=== PATIENT | female | born 1935 | race Caucasian/White ===

== ENCOUNTER 2016-10-18 12:33 | Emergency (ER) | payer MEDICARE, OTHER ==
[2016-10-18] MEDS ORDERED: Adenosine 6 MG/2 ML SDV ONE (13:01)
[2016-10-18] MEDS ORDERED: Diltiazem 25 MG/5 ML SDV IVPUSH ONE (13:10)
[2016-10-18] MEDS ORDERED: Adenosine 6 MG/2 ML SDV IVPUSH ONE (13:10)
--- NOTE | 2016-10-18 13:14 | EDM.PDOC ---
ED HPI GENERAL MEDICAL PROBLEM - General Chief Complaint: Chest Pain Stated Complaint: RAPID HEART RATE Time Seen by Provider: 10/18/16 13:14 Source of Information: Reports: Patient, Family History Limitations: Reports: No Limitations - History of Present Illness INITIAL COMMENTS - FREE TEXT/NARRATIVE: pt arrived with a heart rate of 140. She did not have chest pain but did feel like her heart was racing. Onset: Today Duration: Hour(s):, Other ( She started feeling like her heart was rapid this am. ) Location: Reports: Chest Associated Symptoms: Reports: Other ( rapid heart bear. ) - Related Data Allergies Allergy/AdvReac Type Severity Reaction Status Date / Time codeine Allergy unknown Verified 10/18/16 13:46 Penicillins Allergy unknown Verified 10/18/16 13:46 Home Meds: Home Meds Cetirizine [ZyrTEC] 10 mg PO DAILY 12/05/15 [History] Cranberry Extract [Cranberry] 1 cap PO DAILY 12/05/15 [History] Diazepam [Valium] 2 mg PO QID PRN 12/05/15 [History] Gabapentin [Neurontin] 300 mg PO TID 12/05/15 [History] Hyoscyamine Sulfate [Levbid] 0.375 mg PO DAILY 12/05/15 [History] Multivitamin [Multi-Vitamin Daily] 1 tab PO DAILY 12/05/15 [History] Omeprazole 40 mg PO DAILY 12/05/15 [History] Simvastatin [Zocor] 20 mg PO DAILY 12/05/15 [History] cycloSPORINE [Restasis] 1 drop EYEBOTH BID 10/18/16 [History] Past Medical History Musculoskeletal History: Reports: Back Pain, Chronic Social & Family History - Tobacco Use Smoking Status *Q: Never Smoker ED ROS GENERAL - Review of Systems Review Of Systems: See Below Constitutional: Reports: No Symptoms HEENT: Reports: No Symptoms Respiratory: Reports: No Symptoms Cardiovascular: Reports: Palpitations Endocrine: Reports: No Symptoms GI/Abdominal: Reports: No Symptoms : Reports: No Symptoms Musculoskeletal: Reports: No Symptoms Skin: Reports: No Symptoms ED EXAM, GENERAL - Physical Exam Exam: See Below Free Text/Narrative:: pt arrived with a rapid heart rate and she felt uncomfortable with this. Exam Limited By: No Limitations General Appearance: Alert, Anxious Ears: Normal TMs Nose: Normal Inspection Throat/Mouth: Normal Inspection Head: Atraumatic Neck: Normal Inspection Respiratory/Chest: No Respiratory Distress Cardiovascular: Regular Rate, Rhythm, Tachycardia GI/Abdominal: Soft, Non-Tender (Female) Exam: Deferred Rectal (Female) Exam: Deferred Back Exam: Normal Inspection Extremities: Normal Inspection Neurological: Alert, Oriented, Normal Cognition Psychiatric: Normal Affect Course - Vital Signs Last Recorded V/S: Last Vital Signs Temp 36.0 C 10/18/16 13:18 Pulse 137 H 10/18/16 13:18 Resp 18 10/18/16 13:18 BP 162/98 H 10/18/16 13:18 Pulse Ox 95 10/18/16 13:18 - Orders/Labs/Meds Orders: Active Orders 24 hr Category Date Time Status Echo Comp wo Cont [US] Stat Exams 10/18/16 14:22 Taken Diltiazem [Cardizem] 100 mg Med 10/18/16 14:00 Active Sodium Chloride 0.9% [Normal Saline] 100 ml IV TITRATE Medication Orders Diltiazem HCl 100 mg/ Sodium (Chloride) 100 mls @ 5 mls/hr IV TITRATE RIDDHI; 5 MG /HR PRN Reason: Protocol Labs: Laboratory Tests 10/18/16 10/18/16 10/18/16 Range/Units 13:12 13:12 13:12 WBC 9.6 (4.5-11.0) K/uL RBC 4.38 (3.30-5.50) M/uL Hgb 15.1 H (12.0-15.0) g/dL Hct 41.7 (36.0-48.0) % MCV 95 (80-98) fL MCH 35 H (27-31) pg MCHC 36 (32-36) % Plt Count 355 (150-400) K/uL Neut % (Auto) 74 H (36-66) % Lymph % (Auto) 18 L (24-44) % [place] % (Auto) 7 H (2-6) % Eos % (Auto) 1 L (2-4) % Baso % (Auto) 0 (0-1) % Sodium 135 L (140-148) mmol/L Potassium 4.4 (3.6-5.2) mmol/L Chloride 101 (100-108) mmol/L Carbon Dioxide 28 (21-32) mmol/L Anion Gap 10.4 (5.0-14.0) mmol/L BUN 15 (7-18) mg/dL Creatinine 0.8 (0.6-1.0) mg/dL Est Cr Clr Drug Dosing 46.40 mL/min Estimated GFR (MDRD) > 60 (>60) Glucose 102 (74-106) mg/dL Calcium 8.8 (8.5-10.1) mg/dL Total Bilirubin 1.0 (0.2-1.0) mg/dL AST 24 (15-37) U/L ALT 25 (12-78) U/L Alkaline Phosphatase 77 (46-116) U/L Creatine Kinase 70 (26-192) U/L Troponin I 0.020 (0.000-0.056) ng/mL Vga-T-Fuesohgeefh Pept 707 H (5-450) pg/mL Total Protein 7.8 (6.4-8.2) g/dL Albumin 3.4 (3.4-5.0) g/dL Globulin 4.4 H (2.3-3.5) g/dL Albumin/Globulin Ratio 0.8 L (1.2-2.2) Urine Color Urine Appearance Urine pH (4.5-8.0) Ur Specific [place] (1.008-1.030) Urine Protein (NEGATIVE) mg/dL Urine Glucose (UA) (NEGATIVE) mg/dL Urine Ketones (NEGATIVE) mg/dL Urine Occult Blood (NEGATIVE) Urine Nitrite (NEGATIVE) Urine Bilirubin (NEGATIVE) Urine Urobilinogen (NORMAL) mg/dL Ur Leukocyte Esterase (NEGATIVE) Urine RBC (0-5) Urine WBC (0-5) Ur Epithelial Cells Amorphous Sediment Urine Bacteria Urine Mucus 10/18/16 Range/Units 13:18 WBC (4.5-11.0) K/uL RBC (3.30-5.50) M/uL Hgb (12.0-15.0) g/dL Hct (36.0-48.0) % MCV (80-98) fL MCH (27-31) pg MCHC (32-36) % Plt Count (150-400) K/uL Neut % (Auto) (36-66) % Lymph % (Auto) (24-44) % [place] % (Auto) (2-6) % Eos % (Auto) (2-4) % Baso % (Auto) (0-1) % Sodium (140-148) mmol/L Potassium (3.6-5.2) mmol/L Chloride (100-108) mmol/L Carbon Dioxide (21-32) mmol/L Anion Gap (5.0-14.0) mmol/L BUN (7-18) mg/dL Creatinine (0.6-1.0) mg/dL Est Cr Clr Drug Dosing mL/min Estimated GFR (MDRD) (>60) Glucose (74-106) mg/dL Calcium (8.5-10.1) mg/dL Total Bilirubin (0.2-1.0) mg/dL AST (15-37) U/L ALT (12-78) U/L Alkaline Phosphatase (46-116) U/L Creatine Kinase (26-192) U/L Troponin I (0.000-0.056) ng/mL Rzy-A-Mguusquawoi Pept (5-450) pg/mL Total Protein (6.4-8.2) g/dL Albumin (3.4-5.0) g/dL Globulin (2.3-3.5) g/dL Albumin/Globulin Ratio (1.2-2.2) Urine Color Yellow Urine Appearance Clear Urine pH 8.0 (4.5-8.0) Ur Specific [place] 1.015 (1.008-1.030) Urine Protein Negative (NEGATIVE) mg/dL Urine Glucose (UA) Normal (NEGATIVE) mg/dL Urine Ketones Negative (NEGATIVE) mg/dL Urine Occult Blood Moderate (NEGATIVE) Urine Nitrite Negative (NEGATIVE) Urine Bilirubin Negative (NEGATIVE) Urine Urobilinogen Normal (NORMAL) mg/dL Ur Leukocyte Esterase Negative (NEGATIVE) Urine RBC 0-5 (0-5) Urine WBC 0-5 (0-5) Ur Epithelial Cells Rare Amorphous Sediment Few Urine Bacteria Rare Urine Mucus Few Meds: Medications Generic Name Dose Route Start Last Admin Trade Name Freq PRN Reason Stop Dose Admin Diltiazem HCl 100 mg/ Sodium 100 mls @ 5 mls/hr 10/18/16 14:00 Chloride IV TITRATE RIDDHI Protocol 5 MG/HR Discontinued Medications Generic Name Dose Route Start Last Admin Trade Name Freq PRN Reason Stop Dose Admin Adenosine Confirm 10/18/16 13:01 10/18/16 13:50 Adenocard Administered 10/18/16 13:02 Not Given Dose 6 mg .ROUTE .STK-MED ONE Adenosine 6 mg 10/18/16 13:10 10/18/16 13:10 Adenocard IVPUSH 10/18/16 13:11 6 mg NOW ONE Administration Diltiazem HCl 5 mg 10/18/16 13:10 Diltiazem IVPUSH 10/18/16 13:11 ONETIME ONE Diltiazem HCl 100 mg/ Sodium 100 mls @ 5 mls/hr 10/18/16 13:15 Chloride IV TITRATE RIDDHI Protocol 5 MG/HR - Re-Assessments/Exams Free Text/Narrative Re-Assessment/Exam: 10/18/16 16:06 Ekg showed a probable atrial flutter, with a rate of 140. She was given adenogard which showed a definite atrial flutter. She was then given cardizem 5mg iv push and she converted before the drip could be started. She remains stable at this point. Departure - Departure Time of Disposition: 16:08 Disposition: Home, Self-Care 01 Condition: Fair Clinical Impression: Atrial flutter with rapid ventricular response Referrals: PCP,None [Primary Care Provider] - Forms: ED Department Discharge Care Plan Goals: lopressor 12.5 mg daily, appt with Dr Bustillos. in 1 week. - My Orders Last 24 Hours: My Active Orders 10/18/16 14:00 Diltiazem [Cardizem] 100 mg Sodium Chloride 0.9% [Normal Saline] 100 ml IV TITRATE 10/18/16 14:22 Echo Comp wo Cont [US] Stat - Assessment/Plan Last 24 Hours: My Active Orders 10/18/16 14:00 Diltiazem [Cardizem] 100 mg Sodium Chloride 0.9% [Normal Saline] 100 ml IV TITRATE 10/18/16 14:22 Echo Comp wo Cont [US] Stat
[2016-10-18] MEDS ORDERED: Diltiazem 100 MG in Sodium Chloride 0.9% 100 ML IV SCH ×2 (13:15→14:00)
--- NOTE | 2016-10-18 13:53 | CR ---
Heart size within normal limits. Calcified granuloma right lung base. No focal consolidation.
[2016-10-18 16:34] VITALS: BP 115/53
== END 2016-10-18 16:48 | disposition home or self-care (01) ==
LOC: JP.ED 12:33
DX: I48.92 Unspecified atrial flutter (principal); R06.02 Shortness of breath; Z79.899 Other long term (current) drug therapy; Z88.5 Allergy status to narcotic agent; Z88.0 Allergy status to penicillin
CPT/HCPCS: 36415; 71010; 80053; 81001; 82550; 83880; 84484; 85025; 93010; 93306; 96374; 99284; 99285; J0153

== ENCOUNTER 2016-10-28 19:16 | Emergency (ER) | payer MEDICARE, OTHER ==
[2016-10-28] MEDS ORDERED: Sodium Chloride 0.9% 10 ML Syringe FLUSH PRN (20:12)
[2016-10-28] MEDS ORDERED: Adenosine 6 MG/2 ML SDV IVPUSH ONE (20:22)
[2016-10-28] MEDS ORDERED: Diltiazem 25 MG/5 ML SDV IVPUSH ONE ×2 (20:27→23:05)
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
[2016-10-28] MEDS ORDERED: Diltiazem 100 MG in Sodium Chloride 0.9% 100 ML IV SCH (21:15)
[2016-10-29] MEDS ORDERED: Metoprolol Tartrate 25 MG Tab PO ONE (00:01)
[2016-10-29 02:13] VITALS: BP 130/52
--- NOTE | 2016-10-29 10:08 | CR ---
Chest 1V Frontal INDICATION: sob COMPARISON: 10/18/2016 FINDINGS: Single AP portable view. Mild vascular congestion new since the prior study. No focal co nsolidation or signs of pulmonary edema. Heart size remains normal. No pleural effusion. IMPRESSION: Mild vascular congestion but no signs of pulmonary edema.
== END 2016-10-29 01:08 | disposition home or self-care (01) ==
LOC: JP.ED 19:16
DX: I48.92 Unspecified atrial flutter (principal); K21.9 Gastro-esophageal reflux disease without esophagitis; Z90.710 Acquired absence of both cervix and uterus; Z98.890 Other specified postprocedural states; Z79.899 Other long term (current) drug therapy; Z88.0 Allergy status to penicillin; Z88.5 Allergy status to narcotic agent
CPT/HCPCS: 36415; 71010; 80053; 81001; 83880; 84443; 84484; 85025; 93005; 96374; 96375; 96376; 99284; A9270; J0153; J7030; J7050; 93010; J3490

== ENCOUNTER 2016-11-21 09:44 | Emergency (ER) | payer MEDICARE, OTHER ==
[2016-11-21] MEDS ORDERED: Sodium Chloride 0.9% 10 ML Syringe FLUSH PRN (10:36)
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
--- NOTE | 2016-11-21 11:21 | CR ---
Chest 1V Frontal HISTORY: Chest pain. COMPARISON: 11/15/2016. FINDINGS: Cardiac size stable. Pulmonary vessels normal distributed. No focal infiltrates. Previously seen mild congestive change has resolved.
[2016-11-21 12:55] VITALS: BP 117/58
== END 2016-11-21 12:58 | disposition home or self-care (01) ==
LOC: JP.ED 09:44
DX: I48.92 Unspecified atrial flutter (principal); K21.9 Gastro-esophageal reflux disease without esophagitis; F32.9 Major depressive disorder, single episode, unspecified; Z79.899 Other long term (current) drug therapy; Z98.49 Cataract extraction status, unspecified eye; Z90.710 Acquired absence of both cervix and uterus; Z90.81 Acquired absence of spleen; Z98.890 Other specified postprocedural states; Z88.0 Allergy status to penicillin; Z88.5 Allergy status to narcotic agent
CPT/HCPCS: 36415; 71010; 80053; 84484; 85025; 93005; 99284; J7050; 93010

== ENCOUNTER 2017-08-31 07:37 | Emergency (ER) | payer MEDICARE, OTHER ==
[2017-08-31 07:50] VITALS: BP 163/90
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
== END 2017-08-31 11:22 ==
LOC: JP.ED 07:37
DX: G45.9 Transient cerebral ischemic attack, unspecified (principal); E87.1 Hypo-osmolality and hyponatremia; I48.91 Unspecified atrial fibrillation; K21.9 Gastro-esophageal reflux disease without esophagitis; Z88.5 Allergy status to narcotic agent; Z88.0 Allergy status to penicillin; Z79.899 Other long term (current) drug therapy; F32.9 Major depressive disorder, single episode, unspecified
CPT/HCPCS: 36415; 70450; 80053; 81001; 84484; 85025; 93005; 99285-25

== ENCOUNTER 2017-12-19 18:39 | Emergency (ER) | payer MEDICARE, OTHER ==
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
[2017-12-19 21:11] VITALS: BP 166/67
--- NOTE | 2017-12-20 08:45 | CR ---
Lumbar Spine Min 4V CLINICAL HISTORY: Fall, pain FINDINGS: The vertebral body heights are maintained. There is diffuse degenerative disc disease with moderate spondylosis. There is a levo rotoscoliosis. There is severe osteoarthropathy in the lumbar f acets. There are atherosclerotic changes in the aorta. IMPRESSION: Severe diffuse degenerative disc disease Severe diffuse osteoarthropathy Moderate levorotoscoliosis
== END 2017-12-19 21:17 | disposition home or self-care (01) ==
LOC: JP.ED 18:39
DX: S30.0XXA Contusion of lower back and pelvis, initial encounter (principal); I48.91 Unspecified atrial fibrillation; K21.9 Gastro-esophageal reflux disease without esophagitis; W19.XXXA Unspecified fall, initial encounter; Y92.003 Bedroom of unspecified non-institutional (private) residence as the place of occurrence of the external cause; Z88.5 Allergy status to narcotic agent; Z88.0 Allergy status to penicillin; Z79.899 Other long term (current) drug therapy; Z86.73 Personal history of transient ischemic attack (TIA), and cerebral infarction without residual deficits
CPT/HCPCS: 72110; 72110-26; 99284

== ENCOUNTER 2020-01-07 11:12 | Emergency (ER) | payer MEDICARE, OTHER ==
[2020-01-07 11:30] VITALS: BP 137/69; PULSE 68
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
--- NOTE | 2020-01-07 12:16 | CT ---
Head wo Cont CLINICAL HISTORY: Weakness COMPARISON: August 2017 TECHNIQUE: Transverse scans were obtained from the base of the skull through the vertex without IV contrast on a multislice, multidetector CT scanner. Auto dosage reduction and iterative reconstruction techniques employed. FINDINGS: There is an area of encephalomalacia in the left basal ganglia. This is also seen in 2018 there is a vague low-attenuation focus in the posterior horn of the left internal capsule extending upwards which may represent a acute or subacute infarct. This was not seen in 2018.. There is some ill-defined periventricular and subcortical lucency There is no mass effect, hemorrhage, or extraaxial collection. The basal cisterns and sulci over the convexities are prominent. The ventricles are prominent. 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 Chronology is uncertain. This may represent an acute or subacute infarct. This is new since 2018 Chronic ischemic microvascular changes Age-related atrophy
== END 2020-01-07 13:13 | disposition home or self-care (01) ==
LOC: JP.ED 11:12
DX: R53.1 Weakness (principal); I48.91 Unspecified atrial fibrillation; K21.9 Gastro-esophageal reflux disease without esophagitis; F32.9 Major depressive disorder, single episode, unspecified; Z88.5 Allergy status to narcotic agent; Z88.0 Allergy status to penicillin; Z79.899 Other long term (current) drug therapy; Z86.73 Personal history of transient ischemic attack (TIA), and cerebral infarction without residual deficits; Z79.01 Long term (current) use of anticoagulants
CPT/HCPCS: 36415; 70450; 70450-26; 80053; 85025; 99282; 99285-25

== ENCOUNTER 2021-11-03 13:15 | Emergency (ER) | payer MEDICARE, OTHER ==
[2021-11-03] MEDS ORDERED: Sodium Chloride 0.9% 10 ML Syringe FLUSH PRN (13:44)
[2021-11-03] MEDS ORDERED: Sodium Chloride 0.9% 1,000 ML IV SCH (13:45)
[2021-11-03 14:21] LABS: ESTIMATED GFR 72 mL/min (>60); TROPONIN I HIGH SENSITIVITY 10.5 pg/mL (<=60.3)
[2021-11-03] MEDS ORDERED: Sodium Chloride 0.9% 500 ML IV SCH (15:30)
[2021-11-03 16:12] VITALS: PULSE 65
[2021-11-03] MEDS ORDERED: Sulfamethoxazole/Trimethoprim 800-160 MG Tab PO ONE (16:51)
[2021-11-03 17:14] VITALS: BP 112/46
== END 2021-11-03 15:30 | disposition home or self-care (01) ==
LOC: JP.ED 13:15
DX: N39.0 Urinary tract infection, site not specified (principal); E86.0 Dehydration; I10 Essential (primary) hypertension; Z88.5 Allergy status to narcotic agent; Z88.0 Allergy status to penicillin; Z79.899 Other long term (current) drug therapy; Z90.49 Acquired absence of other specified parts of digestive tract; Z90.710 Acquired absence of both cervix and uterus; Z20.822 Contact with and (suspected) exposure to COVID-19
CPT/HCPCS: 36415; 71045; 80053; 81001; 84484; 85025; 87086; 87088; 87186; 93005; 96360; 99285; A9270; J7030; U0002

== ENCOUNTER 2021-11-05 12:28 | Emergency (ER) | payer MEDICARE, OTHER ==
[2021-11-05] MEDS ORDERED: Sodium Chloride 0.9% 10 ML Syringe FLUSH PRN (13:10)
[2021-11-05] MEDS ORDERED: Sodium Chloride 0.9% 1,000 ML IV SCH (13:15)
[2021-11-05] MEDS ORDERED: Levofloxacin 250 MG Tab PO ONE (14:19)
[2021-11-05 17:31] VITALS: BP 146/89; PULSE 109
== END 2021-11-05 17:30 | disposition home or self-care (01) ==
LOC: JP.ED 12:28
DX: E87.1 Hypo-osmolality and hyponatremia (principal); K21.9 Gastro-esophageal reflux disease without esophagitis; I10 Essential (primary) hypertension; Z88.5 Allergy status to narcotic agent; Z88.0 Allergy status to penicillin; Z79.899 Other long term (current) drug therapy; Z90.49 Acquired absence of other specified parts of digestive tract; Z90.710 Acquired absence of both cervix and uterus
CPT/HCPCS: 36415; 80048; 83605; 84145; 85025; 86140; 96360; 96361; 99285; A9270; J7030